=== PATIENT | female | born 1980 | race Caucasian/White ===

== ENCOUNTER 2019-05-21 15:53 | Inpatient (IN) | payer SELFPAY ==
[~2019-05-21] VITALS: Ht 65.7 cm; Wt 65.7 kg
[2019-05-21] MEDS ORDERED: KETOROLAC 30 MG/ML VIAL IVP ONE (16:15)
[2019-05-21] MEDS ORDERED: PIPERACILLIN SODIUM/TAZOBACTAM 4.5 GM in NS (IVPB) 100 ML IV ONE (16:15)
--- NOTE | 2019-05-21 16:18 | ED Upper Extremity ---
General Chief Complaint: Bite-Animal/Human/Insect Stated Complaint: CAT BITE INFECTION L HAND Nursing Triage Note: 2 WEEKS AGO PT WAS BIT BY A CAT ON HER LEFT HAND. WAS SENT FROM [facility] TO [place] WHERE SHE SPENT A WEEK ON IV ABX. SENT HOME ON CLINDA. PT STATES TODAY SHE STARTED RUNNING A LOW GRADE FEVER, INCREASED PAIN, AND MORE DRAINAGE FROM SITE. PT WENT TO CLINIC AND WAS TOLD TO COME TO THE ER FOR IV ABX. PT TOOK ALEVE AT 1400 Nursing Sepsis Screen: Possible Severe Sepsis Risk Source: patient Exam Limitations: no limitations History of Present Illness Date Seen by Provider: May 21, 2019 Time Seen by Provider: 16:14 Initial Comments To ER with reports mild to the left hand over the third MCP joint. This occurred about 2 weeks ago, she was sent from [facility] to [facility] in [place], received IV antibiotics, then discharged home on oral clindamycin which she is allegedly still taking. Comes in today with worsening redness and pain as well as discharge from the 2 puncture wounds to the dorsal aspect of the third MCP joint. Onset: other Severity: moderate Pain/Injury Location: left hand, left 3rd finger Method of Injury: other (cat bite) Modifying Factors: Worse With Movement Allergies and Home Medications Allergies Coded Allergies: No Known Drug Allergies (Unverified , 05/21/19) Patient Home Medication List Home Medication List Reviewed: Yes Review of Systems Constitutional: see HPI EENTM: see HPI Respiratory: no symptoms reported Cardiovascular: no symptoms reported Genitourinary: no symptoms reported Musculoskeletal: see HPI Skin: no symptoms reported Psychiatric/Neurological: No Symptoms Reported Past Vsfswkm-Yffulw-Yvcsla Hx Patient Social History Alcohol Use: Occasionally Uses 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 (PAST HISTORY OF METH) Smoking Status: Current Everyday Smoker Recent Foreign Travel: No Contact w/Someone Who Travel: No Recent Infectious Disease Expo: No Recent Hopitalizations: Yes Seasonal Allergies Seasonal Allergies: No Past Medical History Surgeries: Yes Appendectomy, Section, Hysterectomy, Orthopedic, Tonsillectomy Respiratory: No Cardiac: No Neurological: No Sexually Transmitted Disease: No Genitourinary: No Gastrointestinal: No Musculoskeletal: No Endocrine: No HEENT: No Cancer: No Psychosocial: No Integumentary: No Physical Exam Vital Signs Vital Signs - First Documented 05/21/19 15:55 Temp 36.6 Pulse 121 Resp 16 B/P (MAP) 121/81 (94) Pulse Ox 98 O2 Delivery Room Air Capillary Refill : Less Than 3 Seconds Height, Weight, BMI Height: '" Weight: lbs. oz. kg; 25.00 BMI Method: General Appearance: WD/WN, no apparent distress HEENT: PERRL/EOMI, normal ENT inspection Cardiovascular: tachycardia Respiratory: normal breath sounds, no respiratory distress, no accessory muscle use Shoulder: normal inspection, non-tender Elbow/Forearm: normal inspection, non-tender Wrist: Yes normal inspection Hand: Left, soft tissue tenderness (half-dollar sized area of erythema and swelling over the dorsal aspect third MCP joint, there are 2 puncture wounds both of which are draining a purulent material. Culture of this was collected and sent to lab.) Progress/Results/Core Measures Results/Orders Lab Results Laboratory Tests Test 05/21/19 16:30 05/21/19 16:57 Range/Units White Blood Count 13.4 H 4.3-11.0 10^3/uL Red Blood Count 4.60 4.35-5.85 10^6/uL Hemoglobin 14.0 11.5-16.0 G/DL Hematocrit 42 35-52 % Mean Corpuscular Volume 92 80-99 FL Mean Corpuscular Hemoglobin 30 25-34 PG Mean Corpuscular Hemoglobin Concent 33 32-36 G/DL Red Cell Distribution Width 13.5 10.0-14.5 % Platelet Count 506 H 130-400 10^3/uL Mean Platelet Volume 8.7 7.4-10.4 FL Neutrophils (%) (Auto) 65 42-75 % Lymphocytes (%) (Auto) 28 12-44 % Monocytes (%) (Auto) 6 0-12 % Eosinophils (%) (Auto) 1 0-10 % Basophils (%) (Auto) 1 0-10 % Neutrophils # (Auto) 8.6 H 1.8-7.8 X 10^3 Lymphocytes # (Auto) 3.8 1.0-4.0 X 10^3 Monocytes # (Auto) 0.8 0.0-1.0 X 10^3 Eosinophils # (Auto) 0.2 0.0-0.3 10^3/uL Basophils # (Auto) 0.1 0.0-0.1 10^3/uL Sodium Level 141 135-145 MMOL/L Potassium Level 4.0 3.6-5.0 MMOL/L Chloride Level 104 98-107 MMOL/L Carbon Dioxide Level 26 21-32 MMOL/L Anion Gap 11 5-14 MMOL/L Blood Urea Nitrogen 16 7-18 MG/DL Creatinine 0.78 0.60-1.30 MG/DL Estimat Glomerular Filtration Rate > 60 BUN/Creatinine Ratio 21 Glucose Level 91 70-105 MG/DL Lactic Acid Level 1.22 0.50-2.00 MMOL/L Calcium Level 9.3 8.5-10.1 MG/DL Corrected Calcium 9.4 8.5-10.1 MG/DL Total Bilirubin 0.1 0.1-1.0 MG/DL Aspartate Amino Transf (AST/SGOT) 24 5-34 U/L Alanine Aminotransferase (ALT/SGPT) 85 H 0-55 U/L Alkaline Phosphatase 197 H 40-136 U/L Total Protein 7.6 6.4-8.2 GM/DL Albumin 3.9 3.2-4.5 GM/DL Serum Test, Qualitative NEGATIVE NEGATIVE Urine Color YELLOW Urine Clarity TURBID Urine pH 8.5 5-9 Urine Specific [place] 1.015 L 1.016-1.022 Urine Protein NEGATIVE NEGATIVE Urine Glucose (UA) NEGATIVE NEGATIVE Urine Ketones NEGATIVE NEGATIVE Urine Nitrite NEGATIVE NEGATIVE Urine Bilirubin NEGATIVE NEGATIVE Urine Urobilinogen 0.2 < = 1.0 MG/DL Urine Leukocyte Esterase NEGATIVE NEGATIVE Urine RBC (Auto) NEGATIVE NEGATIVE Urine RBC NONE /HPF Urine WBC NONE /HPF Urine Squamous Epithelial Cells NONE /HPF Urine Crystals NONE /LPF Urine Amorphous Sediment LARGE ELY PHOSPHATE H /LPF Urine Bacteria NEGATIVE /HPF Urine Casts NONE /LPF Urine Mucus NEGATIVE /LPF Urine Culture Indicated NO Urine Opiates Screen NEGATIVE NEGATIVE Urine Oxycodone Screen NEGATIVE NEGATIVE Urine Methadone Screen NEGATIVE NEGATIVE Urine Propoxyphene Screen NEGATIVE NEGATIVE Urine Barbiturates Screen NEGATIVE NEGATIVE Ur Tricyclic Antidepressants Screen NEGATIVE NEGATIVE Urine Phencyclidine Screen NEGATIVE NEGATIVE Urine Amphetamines Screen NEGATIVE NEGATIVE Urine Methamphetamines Screen NEGATIVE NEGATIVE Urine Benzodiazepines Screen NEGATIVE NEGATIVE Urine Cocaine Screen NEGATIVE NEGATIVE Urine Cannabinoids Screen NEGATIVE NEGATIVE My Orders Orders - LILIA ADKINS DONOR SERVICES MANAGER Cbc With Automated Diff (05/21/19 16:07) Comprehensive Metabolic Panel (05/21/19 16:07) Ed Iv/Invasive Line Start (05/21/19 16:07) Blood Culture (05/21/19 16:07) Lactic Acid Analyzer (05/21/19 16:07) Ua Culture If Indicated (05/21/19 16:12) Drug Screen Stat (Urine) (05/21/19 16:12) Hcg,Qualitative Serum (05/21/19 16:12) Piperacillin Sodium/Tazobactam (Zosyn Vi (05/21/19 16:15) Ketorolac Injection (Toradol Injection) (05/21/19 16:15) Ns Iv 1000 Ml (Sodium Chloride 0.9%) (05/21/19 16:30) Wound Culture (05/21/19 16:18) Fentanyl Injection (Sublimaze Injection (05/21/19 17:30) Medications Given in ED Current Medications Medications Dose Ordered Sig/Vel Route Start Time Stop Time Status Last Admin Dose Admin Fentanyl Citrate 50 mcg ONCE ONCE IVP 05/21/19 17:30 05/21/19 17:31 DC 05/21/19 17:35 50 MCG Ketorolac Tromethamine 15 mg ONCE ONCE IVP 05/21/19 16:15 05/21/19 16:16 DC 05/21/19 16:39 15 MG Piperacillin Sod/ Tazobactam Sod 4.5 gm/Sodium Chloride 100 ml @ 200 mls/hr ONCE ONCE IV 05/21/19 16:15 05/21/19 16:44 DC 05/21/19 17:35 200 MLS/HR Vital Signs/I&O 05/21/19 15:55 Temp 36.6 Pulse 121 Resp 16 B/P (MAP) 121/81 (94) Pulse Ox 98 O2 Delivery Room Air Blood Pressure Mean: 94 Departure Communication (Admissions) Time/Spoke to Admitting Phy: 17:[address] Hughes and Dr. Albarado, we'll admit on Zosyn. Spoke with Dr. Roman, he would rather have general surgery evaluate the wound. Impression Primary Impression: Infected cat bite of hand Qualified Codes: S61.452A - Open bite of left hand, initial encounter; L08.9 - Local infection of the skin and subcutaneous tissue, unspecified; W55.01XA - Bitten by cat, initial encounter Disposition: ADMITTED INPATIENT Condition: Stable Admissions Decision to Admit Reason: Admit from ER (General) Decision to Admit/Date: May 21, 2019 Time/Decision to Admit Time: 17:52 Departure-Patient Inst. Referrals: [facility] (PCP/Family) Primary Care Physician Images Extremities-Upper 1 - LILIA ADKINS APRN May 21, 2019 16:17
[2019-05-21] MEDS ORDERED: NS IV 1000 ML 1,000 ML IV SCH (16:30)
[2019-05-21 16:48] LABS: BASOPHILS # (AUTO) 0.1 10^3/uL (0.0-0.1); BASOPHILS % (AUTO) 1 % (0-10); EOSINOPHILS # (AUTO) 0.2 10^3/uL (0.0-0.3); EOSINOPHILS % (AUTO) 1 % (0-10); HEMATOCRIT 42 % (35-52); LYMPHOCYTES # (AUTO) 3.8 X 10^3 (1.0-4.0); LYMPHOCYTES % (AUTO) 28 % (12-44); MEAN CORPUSCULAR HEMOGLOBIN 30 PG (25-34); MEAN CORPUSCULAR HGB CONC 33 G/DL (32-36); MEAN CORPUSCULAR VOLUME 92 FL (80-99); MEAN PLATELET VOLUME 8.7 FL (7.4-10.4); MONOCYTES # (AUTO) 0.8 X 10^3 (0.0-1.0); MONOCYTES % (AUTO) 6 % (0-12); NEUTROPHILS # (AUTO) 8.6 X 10^3 (1.8-7.8); NEUTROPHILS % (AUTO) 65 % (42-75); PLATELET COUNT 506 10^3/uL (130-400); RED CELL DISTRIBUTION WIDTH 13.5 % (10.0-14.5); WHITE BLOOD COUNT 13.4 10^3/uL (4.3-11.0)
[2019-05-21 17:02] LABS: ALANINE AMINOTRANSFERASE 85 U/L (0-55); ALBUMIN 3.9 GM/DL (3.2-4.5); ALKALINE PHOSPHATASE 197 U/L (40-136); BILIRUBIN,TOTAL 0.1 MG/DL (0.1-1.0); BUN/CREATININE RATIO 21; CALCIUM 9.3 MG/DL (8.5-10.1); CARBON DIOXIDE 26 MMOL/L (21-32); CHLORIDE 104 MMOL/L (98-107); CREATININE SERUM 0.78 MG/DL (0.60-1.30); GFR ESTIMATED > 60; GLUCOSE 91 MG/DL (70-105); SODIUM 141 MMOL/L (135-145); TOTAL PROTEIN 7.6 GM/DL (6.4-8.2)
[2019-05-21 17:06] LABS: BILIRUBIN,URINE NEGATIVE (NEGATIVE); CLARITY,URINE TURBID; COLOR,URINE YELLOW; GLUCOSE, URINE (UA) NEGATIVE (NEGATIVE); KETONES,URINE NEGATIVE (NEGATIVE); LEUKOCYTE ESTERASE ,URINE NEGATIVE (NEGATIVE); NITRITE,URINE NEGATIVE (NEGATIVE); PH,URINE 8.5 (5-9); PROTEIN,URINE NEGATIVE (NEGATIVE)
[2019-05-21 17:12] LABS: AMORPHOUS SEDIMENT,UR LARGE AMOR PHOSPHATE /LPF; BACTERIA,URINE NEGATIVE /HPF
[2019-05-21 17:18] LABS: AMPHETAMINE SCREEN, URINE NEGATIVE (NEGATIVE); BARBITURATE SCREEN URINE NEGATIVE (NEGATIVE); BENZODIAZEPINES SCREEN URINE NEGATIVE (NEGATIVE); CANNABINOID SCREEN, URINE NEGATIVE (NEGATIVE); COCAINE SCREEN URINE NEGATIVE (NEGATIVE); METHADONE STAT NEGATIVE (NEGATIVE); METHAMPHETAMINE SCREEN URINE S NEGATIVE (NEGATIVE); OPIATE SCREEN URINE NEGATIVE (NEGATIVE); OXYCODONE STAT NEGATIVE (NEGATIVE); PROPOXYPHENE STAT NEGATIVE (NEGATIVE); TRICYCLIC ANTIDEPRESSANTS SCRE NEGATIVE (NEGATIVE)
[2019-05-21] MEDS ORDERED: fentaNYL INJECTION 100 MCG/2 ML AMP IVP ONE ×2 (17:30→18:15)
[2019-05-21] MEDS ORDERED: CATHETER FLUSH 10 ML SYR IV PRN ×2 (18:15→19:00)
[2019-05-21] MEDS ORDERED: NS 100 ML (IVPB) BAG IV ONE (18:15)
[2019-05-21] MEDS ORDERED: IOHEXOL 350 MG/ML 100 ML (OMNIPAQUE 350) VIAL IV ONE (18:15)
[2019-05-21] MEDS ORDERED: HOLD METFORMIN - RECEIVED CONTRAST 20 ML VIAL IV SCH (18:15)
[2019-05-21 18:43] VITALS: BP 119/78
--- NOTE | 2019-05-21 18:59 | Diagnostic Imaging Report ---
PROCEDURE: CT right upper extremity with contrast. TECHNIQUE: Axial images were obtained through the right upper extremity after intravenous contrast and reformatted into coronal and sagittal oblique planes. Auto Exposure Controls were utilized during the CT exam to meet ALARA standards for radiation dose reduction. INDICATION: Cat bite with cellulitis. FINDINGS: There is some focal soft tissue swelling and induration circumferentially about the 3rd metacarpophalangeal joint. It is difficult to exclude a very tiny fluid collection. There is no fracture or dislocation. There are no lytic or sclerotic lesions within the hand. The contents of the carpal tunnels are grossly unremarkable. There are no other discrete fluid collections or masses. IMPRESSION: Circumferential soft tissue thickening and inflammatory induration about the 3rd metacarpophalangeal joint suspect for underlying cellulitis. Again difficult to exclude tiny abscess. No obvious bony abnormalities are appreciated. Findings remain most compatible with cellulitis. Recommend clinical correlation and if warranted this could likely be better characterized with gadolinium-enhanced MRI. Dictated by: Dictated on workstation # [id number]
[2019-05-21] MEDS ORDERED: VANCOMYCIN 1250 MG/NS 250 ML IVPB IV NR ×2 (19:00)
[2019-05-21] MEDS ORDERED: NICOTINE 21 MG (NICODERM) PATCH TD SCH (19:00)
--- NOTE | 2019-05-21 19:05 | NUR ---
CR 0.78; CR CL > 60; WT 65.7 KG; VANCO 1250 MG IV BOLUS THEN 1000 MG IV Q12H; TROUGH AFTER 3RD DOSE
--- NOTE | 2019-05-21 19:22 | History & Physical-Hospitalist ---
History of Present Illness HPI/Chief Complaint CC: Right hand cellulitis from cat bite recurrent type failed Cleocin PO HPI: This is a 38yoWF clinic patient of [facility] who had originally presented to [place], [place] ER last week and sent to [facility] for right hand infection from cat bite and spent 1 week inpatient for IV abx and then sent home on Cleocin who then worsened 2 days later and presented to [facility] clinic in [facility] and was told to go to [facility] ER so patient was assessed to be tachycardic but no fever but increased wbc without elevated lactic acid and what appears to be a recurrent cellulitis so CT scan was obtained revealing cellulitis and possibly a very small abscess so Dr Patterson was consulted and will be placed on Zosyn and Vanc along with pain meds and will monitor this issue closely. Source: patient, family Exam Limitations: no limitations Date Seen 05/21/19 Time Seen by a Provider: 17:50 Attending Physician Carol Hughes DO [facility] Referring Physician Date of Admission May 21, 2019 at 17:47 Home Medications & Allergies Home Medications Reviewed patient Home Medication Reconciliation performed by pharmacy medication reconciliations it service technician and/or nursing. Patients Allergies have been reviewed. Allergies Allergies Coded Allergies No Known Drug Allergies (Unverified05/21/19) Past Kkvntet-Utasou-Wucpbm Hx Past Med/Social Hx: Reviewed Nursing Past Med/Soc Hx, Reviewed and Corrections made Patient Social History Marrital Status: cohabiting Employed/Student: unemployed Alcohol Use: Occasionally Uses 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 (PAST HISTORY OF METH) Smoking Status: Current Everyday Smoker Recent Foreign Travel: No Contact w/other who traveled: No Recent Hopitalizations: Yes Recent Infectious Disease Expo: No Seasonal Allergies Seasonal Allergies: No Past Medical History Surgeries: Appendectomy, Section, Hysterectomy, Orthopedic, Tonsil lectomy Sexually Transmitted Disease: No Review of Systems Constitutional: see HPI, weakness Musculoskeletal: joint pain (right hand) Physical Exam Physical Exam Vital Signs Vital Signs - First Documented 05/21/19 15:55 Temp 36.6 Pulse 121 Resp 16 B/P (MAP) 121/81 (94) Pulse Ox 98 O2 Delivery Room Air Capillary Refill : Less Than 3 Seconds Height, Weight, BMI Height: '" Weight: lbs. oz. kg; 27.38 BMI Method: General Appearance: No Apparent Distress Eyes: Right Eye Normal Inspection, Right Eye PERRL HEENT: PERRL/EOMI, TMs Normal, Normal ENT Inspection, Pharynx Normal, Moist Mucous Membranes Neck: Full Range of Motion, Normal Inspection, Non Tender Respiratory: Chest Non Tender, Lungs Clear, Normal Breath Sounds, No Accessory Muscle Use, No Respiratory Distress Cardiovascular: Regular Rate, Rhythm, No Edema, No Gallop, No JVD, No Murmur, Normal Peripheral Pulses Gastrointestinal: Normal Bowel Sounds, No Organomegaly, No Pulsatile Mass, Non Tender, Soft Back: Normal Inspection, No CVA Tenderness, No Vertebral Tenderness Extremity: Normal Capillary Refill, Normal Inspection, Normal Range of Motion, Non Tender, No Calf Tenderness, No Pedal Edema, Swelling (right hand with pus drainage and edema of the middle finger and hand) Neurologic/Psychiatric: Alert, Oriented x3, No Motor/Sensory Deficits, Normal Mood/Affect, knitted cloth examiner II-XII Norm as Tested Skin: Normal Color, Warm/Dry Lymphatic: No Adenopathy Results Results/Procedures Labs Laboratory Tests 05/21/19 16:30 Patient resulted labs reviewed. Assessment/Plan Admission Diagnosis Assessment: Recurrent right hand infection failed PO abx after 1 week [facility] IV abx Smoker Tachycardia Dehydration Right hand pain Plan: IV abx broad spectrum IVF Pain meds Dr Franks consulted Admission Status: Inpatient Order (span 2 midnights) Reason for Inpatient Admission: Failed PO abx Diagnosis/Problems Diagnosis/Problems (1) Infected cat bite of hand Status: Acute Qualifiers: Encounter type: initial encounter Laterality: left Qualified Codes: S61.452A - Open bite of left hand, initial encounter; L08.9 - Local infection of the skin and subcutaneous tissue, unspecified; W55.01XA - Bitten by cat, initial encounter (2) SIRS (systemic inflammatory response syndrome) (3) Leukocytosis (4) Smoker CAROL HUGHES DO May 21, 2019 19:22
--- NOTE | 2019-05-21 19:55 | Consultation - Surgery ---
History of Present Illness History of Present Illness Patient Consulted On(t[place]on/time) 05/21/19 19:50 Time Seen by Provider: 15:22 History of Present Illness Surgery asked to consult regarding Left hand abscess. HPI per ED: 2 WEEKS AGO PT WAS BIT BY A CAT ON HER LEFT HAND. WAS SENT FROM [facility] TO [place] WHERE SHE SPENT A WEEK ON IV ABX. SENT HOME ON CLINDA. PT STATES TODAY SHE STARTED RUNNING A LOW GRADE FEVER, INCREASED PAIN, AND MORE DRAINAGE FROM SITE. PT WENT [facility] AND WAS TOLD TO COME TO THE ER FOR IV ABX. PT TOOK ALEVE AT 1400 To ER with reports mild to the left hand over the third MCP joint. This occurred about 2 weeks ago, she was sent from [facility] to [facility] in [place], received IV antibiotics, then discharged home on oral clindamycin which she is allegedly still taking. Comes in today with worsening redness and pain as well as discharge from the 2 puncture wounds to the dorsal aspect of the third MCP joint. Onset: other Severity: moderate Pain/Injury Location: left hand, left 3rd finger Method of Injury: other (cat bite) Modifying Factors: Worse With Movement When I saw pt pat she states the hand is just not getting netter and it is hard to bendl the fingers. She rates the pain as 4 out of 10, mostly dull pain. Pain shoots up arm and down into hand. Allergies and Home Medications Allergies Coded Allergies: No Known Drug Allergies (Unverified , 05/21/19) Patient Home Medication List Home Medication List Reviewed: Yes Past Bekyjkr-Phpjgt-Vxnlzm Hx Patient Social History Alcohol Use: Occasionally Uses 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 (PAST HISTORY OF METH) Smoking Status: Current Everyday Smoker Recent Foreign Travel: No Contact w/Someone Who Travel: No Recent Infectious Disease Expo: No Recent Hopitalizations: Yes Seasonal Allergies Seasonal Allergies: No Surgeries History of Surgeries: Yes Surgeries: Appendectomy, Section, Hysterectomy, Orthopedic, Tonsillectomy Respiratory History of Respiratory Disorde: No Cardiovascular History of Cardiac Disorders: No Neurological History of Neurological Disord: No Reproductive System Sexually Transmitted Disease: No Genitourinary History of Genitourinary Disor: No Gastrointestinal History of Gastrointestinal Di: No Musculoskeletal History of Musculoskeletal Dis: No Endocrine History of Endocrine Disorders: No HEENT History of HEENT Disorders: No Cancer History of Cancer: No Psychosocial History of Psychiatric Problem: No Integumentary History of Skin or Integumenta: No Family Medical History Significant Family History: Heart Disease (Father of [place]), Cancer (grandfather had bone CA), Hypertension (mother) Review of Systems-General Constitutional: No chills, No diaphoresis; fever, malaise EENTM: No blurred vision, No mouth pain, No mouth swelling, No epistaxis Respiratory: No cough, No dyspnea on exertion Cardiovascular: No chest pain, No palpitations Gastrointestinal: No abdominal pain, No heartburn, No nausea, No vomiting Genitourinary: No dysuria, No frequency, No hematuria Musculoskeletal: joint pain, joint swelling, muscle pain, muscle stiffness, muscle cramps Skin: No pruritus, No rash Psychiatric/Neurological: Denies Anxiety, Denies Depressed, Denies Seizure, Denies Tremors Other pt denies any hx of abnormal bleeding or bruising Physical Exam-General Problems Physical Exam Vital Signs Vital Signs - First Documented 05/21/19 15:55 Temp 36.6 Pulse 121 Resp 16 B/P (MAP) 121/81 (94) Pulse Ox 98 O2 Delivery Room Air Capillary Refill : Less Than 3 Seconds General Appearance: WD/WN, no apparent distress Eyes: Bilateral Eye PERRL HEENT: pharynx normal; No scleral icterus (R), No scleral icterus (L), No pale conjunctivae (R), No pale conjunctivae (L); other Neck: non-tender, full range of motion, supple Respiratory: chest non-tender, lungs clear, normal breath sounds, no respiratory distress, no accessory muscle use Cardiovascular: regular rate, rhythm, no edema; No no murmur Gastrointestinal: non tender, soft, no organomegaly, no pulsatile mass Back: no CVA tenderness, no vertebral tenderness Extremities: no pedal edema, no calf tenderness, normal capillary refill, other (left hand has area of erythema and swelling just behind middle finger, 2 puncture wounds are evident. There is erythema and some scant purulent drainage, but no streaking up the arm) Neurologic/Psychiatric: contact manager II-XII nml as tested, no motor/sensory deficits, alert, normal mood/affect, oriented x 3 Skin: normal color, warm/dry Lymphatic: no adenopathy (neck, axilla or groin) Data Review Labs Laboratory Tests 05/21/19 16:30: White Blood Count 13.4H, Red Blood Count 4.60, Hemoglobin 14.0, Hematocrit 42, Mean Corpuscular Volume 92, Mean Corpuscular Hemoglobin 30, Mean Corpuscular Hemoglobin Concent 33, Red Cell Distribution Width 13.5, Platelet Count 506H, Mean Platelet Volume 8.7, Neutrophils (%) (Auto) 65, Lymphocytes (%) (Auto) 28, Monocytes (%) (Auto) 6, Eosinophils (%) (Auto) 1, Basophils (%) (Auto) 1, Neutrophils # (Auto) 8.6H, Lymphocytes # (Auto) 3.8, Monocytes # (Auto) 0.8, Eosinophils # (Auto) 0.2, Basophils # (Auto) 0.1, Sodium Level 141, Potassium Level 4.0, Chloride Level 104, Carbon Dioxide Level 26, Anion Gap 11, Blood Urea Nitrogen 16, Creatinine 0.78, Estimat Glomerular Filtration Rate > 60, BUN/Creatinine Ratio 21, Glucose Level 91, Lactic Acid Level 1.22, Calcium Level 9.3, Corrected Calcium 9.4, Total Bilirubin 0.1, Aspartate Amino Transf (AST/SGOT) 24, Alanine Aminotransferase (ALT/SGPT) 85H, Alkaline Phosphatase 197H, Total Protein 7.6, Albumin 3.9, Serum Test, Qualitative NEGATIVE 05/21/19 16:57: Urine Color YELLOW, Urine Clarity TURBID, Urine pH 8.5, Urine Specific [place] 1.015L, Urine Protein NEGATIVE, Urine Glucose (UA) NEGATIVE, Urine Ketones NEGATIVE, Urine Nitrite NEGATIVE, Urine Bilirubin NEGATIVE, Urine Urobilinogen 0.2, Urine Leukocyte Esterase NEGATIVE, Urine RBC (Auto) NEGATIVE, Urine RBC NONE, Urine WBC NONE, Urine Squamous Epithelial Cells NONE, Urine Crystals NONE, Urine Amorphous Sediment LARGE ELY PHOSPHATEH, Urine Bacteria NEGATIVE, Urine Casts NONE, Urine Mucus NEGATIVE, Urine Culture Indicated NO, Urine Opiates Screen NEGATIVE, Urine Oxycodone Screen NEGATIVE, Urine Methadone Screen NEGATIVE, Urine Propoxyphene Screen NEGATIVE, Urine Barbiturates Screen NEGATIVE, Ur Tricyclic Antidepressants Screen NEGATIVE, Urine Phencyclidine Screen NEGATIVE, Urine Amphetamines Screen NEGATIVE, Urine Methamphetamines Screen NEGATIVE, Urine Benzodiazepines Screen NEGATIVE, Urine Cocaine Screen NEGATIVE, Urine Cannabinoids Screen NEGATIVE Radiology Draft CT EXTREMITY UPPER RIGHT W PROCEDURE: CT right upper extremity with contrast. TECHNIQUE: Axial images were obtained through the right upper extremity after intravenous contrast and reformatted into coronal and sagittal oblique planes. Auto Exposure Controls were utilized during the CT exam to meet ALARA standards for radiation dose reduction. INDICATION: Cat bite with cellulitis. FINDINGS: There is some focal soft tissue swelling and induration circumferentially about the 3rd metacarpophalangeal joint. It is difficult to exclude a very tiny fluid collection. There is no fracture or dislocation. There are no lytic or sclerotic lesions within the hand. The contents of the carpal tunnels are grossly unremarkable. There are no other discrete fluid collections or masses. IMPRESSION: Circumferential soft tissue thickening and inflammatory induration about the 3rd metacarpophalangeal joint suspect for underlying cellulitis. Again difficult to exclude tiny abscess. No obvious bony abnormalities are appreciated. Findings remain most compatible with cellulitis. Recommend clinical correlation and if warranted this could likely be better characterized with gadolinium-enhanced MRI. Dictated on workstation # [id number] Dict: 05/21/[id number] Trans: 05/21/19 [facility] [id number] Interpreted by: DARINEL EDGE MD Electronically signed by: Assessment/Plan Assessment/Plan Assessment/Plan Left Hand Abscess I reviewed the CT films and went over radiology reading. At this point I think the best course of action is to admit pt and start IV fluids, IV abx, pain meds as needed and use warm compresses 3-4 times daily and prn as needed. I dont she needs an incision and drainage; trying to avoid an invasive procedure at this point. Will monitor the hand and if erythema starts spreading or there is streaking up the arm, then may need surgical intervention. Hopefully wound cultures were obtained in ER, will wait to see what bacteria grows and what it is susceptible to. Thank you for this consult. CAROLANN PEREZ DO May 21, 2019 19:55
[2019-05-21 20:00] VITALS: BP 128/55
--- NOTE | 2019-05-21 20:00 | NUR ---
MEHRAN BOWLES admitted to room 420-1, with an admitting diagnosis of CAT BITE INFECTION, on 05/21/19 from ED via , accompanied by STAFF .MEHRAN BOWLES introduced to surroundings, call light, bed controls, phone, TV, temperature control, lights, meal times, smoking policy, visitor policy, side rail policy, bathrooms and showers. Patient Rights given to patient in the handbook. MEHRAN BOWLES verbalizes understanding that [facility] is not responsible for the loss or damage to any personal effects or valuables that are kept in the patients posession during their hospitalization.
[2019-05-21] MEDS: NS IV 1000 ML 1,000 ML IV SCH (20:03)
[2019-05-21] MEDS: ENOXAPARIN 40 MG/0.4 ML (LOVENOX) SYR SC SCH (20:04)
[2019-05-21 20:15] VITALS: BP 119/73
[2019-05-21] MEDS: DOCUSATE SODIUM 100 MG (COLACE) CAP PO SCH (21:19)
[2019-05-21] MEDS: HYDROcodone/APAP 5 MG/325 MG (LORTAB) TAB PO PRN (21:23)
--- NOTE | 2019-05-21 21:45 | NUR ---
PT WANTS HER IV DISCONNECTED FROM HER D/T FLUID MAKING HER HAVE TO USE BATHROOM MORE OFTEN THRU NIGHT. DR SIDHU NOTIFIED AND WAS OK WITH DISCONNECTING HER FROM IV. THIS RN LET HER KNOW THAT SHE WOULD HAVE ZOSYN RUNNING IV AT 0000 AND WOULD RUN FOR APPROX 4 HOURS.
[2019-05-21] MEDS: PIPERACILLIN/TAZO 4.5 GM/NS 100 ML IV SCH ×2 (23:36)
[2019-05-21] MEDS: morphine INJ 4 MG/ML 1 ML (VIAL/SYRINGE) IV PRN (23:36)
[2019-05-21] MEDS: ONDANSETRON 4 MG/2 ML (SDV) Z0FRAN IV PRN (23:40)
[2019-05-22] VITALS: BP 110/68
[2019-05-22] MEDS: morphine INJ 4 MG/ML 1 ML (VIAL/SYRINGE) IV PRN ×5 (03:38→23:33)
[2019-05-22] MEDS: NS IV 1000 ML 1,000 ML IV SCH (03:50)
[2019-05-22 04:00] VITALS: BP 111/74
[2019-05-22] MEDS: ONDANSETRON 4 MG/2 ML (SDV) Z0FRAN IV PRN (05:12)
[2019-05-22 05:26] LABS: BASOPHILS # (AUTO) 0.1 10^3/uL (0.0-0.1); BASOPHILS % (AUTO) 1 % (0-10); EOSINOPHILS # (AUTO) 0.2 10^3/uL (0.0-0.3); EOSINOPHILS % (AUTO) 2 % (0-10); HEMATOCRIT 37 % (35-52); HEMOGLOBIN 12.2 G/DL (11.5-16.0); LYMPHOCYTES % (AUTO) 42 % (12-44); MEAN CORPUSCULAR HEMOGLOBIN 31 PG (25-34); MEAN CORPUSCULAR HGB CONC 33 G/DL (32-36); MEAN CORPUSCULAR VOLUME 93 FL (80-99); MEAN PLATELET VOLUME 8.6 FL (7.4-10.4); MONOCYTES # (AUTO) 0.8 X 10^3 (0.0-1.0); MONOCYTES % (AUTO) 7 % (0-12); NEUTROPHILS # (AUTO) 5.7 X 10^3 (1.8-7.8); NEUTROPHILS % (AUTO) 49 % (42-75); PLATELET COUNT 439 10^3/uL (130-400); RED CELL DISTRIBUTION WIDTH 13.6 % (10.0-14.5); WHITE BLOOD COUNT 11.8 10^3/uL (4.3-11.0)
[2019-05-22 05:45] LABS: ALANINE AMINOTRANSFERASE 58 U/L (0-55); ALBUMIN 3.1 GM/DL (3.2-4.5); ALKALINE PHOSPHATASE 149 U/L (40-136); BILIRUBIN,TOTAL 0.2 MG/DL (0.1-1.0); BUN/CREATININE RATIO 21; CALCIUM 8.5 MG/DL (8.5-10.1); CARBON DIOXIDE 20 MMOL/L (21-32); CHLORIDE 108 MMOL/L (98-107); CREATININE SERUM 0.73 MG/DL (0.60-1.30); GFR ESTIMATED > 60; GLUCOSE 88 MG/DL (70-105); POTASSIUM 4.4 MMOL/L (3.6-5.0); SODIUM 138 MMOL/L (135-145); TOTAL PROTEIN 5.9 GM/DL (6.4-8.2)
[2019-05-22] MEDS: VANCOMYCIN 1 GM/NS 250 ML IVPB IV SCH ×4 (06:46→18:35)
[2019-05-22 08:00] VITALS: BP 112/64
[2019-05-22] MEDS: DOCUSATE SODIUM 100 MG (COLACE) CAP PO SCH ×2 (08:21→21:58)
[2019-05-22] MEDS: PIPERACILLIN/TAZO 4.5 GM/NS 100 ML IV SCH ×4 (08:21→16:11)
[2019-05-22] MEDS: NICOTINE PATCH REMOVAL TP SCH (08:21)
[2019-05-22] MEDS: NICOTINE 7 MG (NICODERM) PATCH TD SCH (08:45)
--- NOTE | 2019-05-22 08:58 | Progress Note - Surgery ---
TRE MORR[facility] 05/22/19 0858: Subjective Date Seen by a Provider: May 22, 2019 Time Seen by a Provider: 08:17 Subjective/Events-last exam Patient was examined. There are no changes to her cat bite injury on her L hand. Patient states its draining very little. She used warm compresses last night but stopped after she went to sleep. She is still experiencing pain, radiates to elbow, rated 3/10 today. Nursing changed her dressing with a warm compress. Does not appear to be spreading or worsening at this time. Movement makes it worse and keeping it still makes it better. Patient has new complaint of some abdominal pain, she reports she has been experiencing some constipation. Review of Systems General: No Chills, No Night Sweats HEENT: No Head Aches, No Visual Changes, No Eye Pain, No Ear Pain, No Dysphasia Pulmonary: Dyspnea (on exertion, started few days ago. ), Cough (started few days ago.) Cardiovascular: No: Chest Pain, Palpitations, Orthopnea Gastrointestinal: Nausea, Constipation; No: Vomiting, Abdominal Pain, Hematochezia Genitourinary: No Dysuria, No Hematuria Musculoskeletal: arm pain (L side ), hand pain (L hand at bite sight ); No: neck pain Neurological: No: Change in speech, Confusion, Seizures Focused Exam Lactate Level 05/21/19 16:30: Lactic Acid Level 1.22 Objective Exam Vital Signs Date Time Temp Pulse Resp B/P (MAP) Pulse Ox O2 Delivery O2 Flow Rate FiO2 05/22/19 04:00 36.8 84 18 111/74 (86) 96 Room Air 05/22/19 00:00 36.4 124 21 110/68 (82) 95 Room Air 05/21/19 20:15 37.4 89 20 119/73 (88) 96 Room Air 05/21/19 20:00 37.2 78 22 128/55 98 Room Air 05/21/19 20:00 Room Air 05/21/19 18:43 37.4 89 20 119/78 96 Room Air 05/21/19 18:37 92 20 126/90 99 Room Air 05/21/19 15:55 36.6 121 16 121/81 (94) 98 Room Air I & O 05/22/19 07:00 Intake Total 2162.5 ml Output Total 1 ml Balance 2161.5 ml Capillary Refill : Less Than 3 Seconds General Appearance: No Apparent Distress, WD/WN HEENT: PERRL/EOMI, Pharynx Normal Neck: Supple, Tender Lateral Respiratory: Chest Non Tender, Lungs Clear, Normal Breath Sounds, No Accessory Muscle Use, No Respiratory Distress Cardiovascular: Regular Rate, Rhythm, No Edema, No Murmur Peripheral Pulses: 2+ Radial Pulses (R), 2+ Radial Pulses (L) Gastrointestinal: normal bowel sounds, soft; No distended, No guarding (patient says very mild discomfort diffusely); tenderness Extremity: No Calf Tenderness, No Pedal Edema, Inflammation (L hand at bite site), Swelling (right hand with pus drainage and edema of the middle finger and hand) Neurologic/Psychiatric: Alert, Oriented x3, Normal Mood/Affect Skin: Normal Color, Warm/Dry, Erythema (L hand at bite site) Lymphatic: No Adenopathy (neck, auricular, supraclavicular, popliteal) Results Lab Laboratory Tests 05/21/19 16:30: White Blood Count 13.4H, Red Blood Count 4.60, Hemoglobin 14.0, Hematocrit 42, Mean Corpuscular Volume 92, Mean Corpuscular Hemoglobin 30, Mean Corpuscular Hemoglobin Concent 33, Red Cell Distribution Width 13.5, Platelet Count 506H, Mean Platelet Volume 8.7, Neutrophils (%) (Auto) 65, Lymphocytes (%) (Auto) 28, Monocytes (%) (Auto) 6, Eosinophils (%) (Auto) 1, Basophils (%) (Auto) 1, Neutrophils # (Auto) 8.6H, Lymphocytes # (Auto) 3.8, Monocytes # (Auto) 0.8, Eosinophils # (Auto) 0.2, Basophils # (Auto) 0.1, Sodium Level 141, Potassium Level 4.0, Chloride Level 104, Carbon Dioxide Level 26, Anion Gap 11, Blood Urea Nitrogen 16, Creatinine 0.78, Estimat Glomerular Filtration Rate > 60, BUN /Creatinine Ratio 21, Glucose Level 91, Lactic Acid Level 1.22, Calcium Level 9.3, Corrected Calcium 9.4, Total Bilirubin 0.1, Aspartate Amino Transf (AST/SGOT) 24, Alanine Aminotransferase (ALT/SGPT) 85H, Alkaline Phosphatase 197H, Total Protein 7.6, Albumin 3.9, Serum Test, Qualitative NEGATIVE 05/21/19 16:57: Urine Color YELLOW, Urine Clarity TURBID, Urine pH 8.5, Urine Specific [place] 1.015L, Urine Protein NEGATIVE, Urine Glucose (UA) NEGATIVE, Urine Ketones NEGATIVE, Urine Nitrite NEGATIVE, Urine Bilirubin NEGATIVE, Urine Urobilinogen 0.2, Urine Leukocyte Esterase NEGATIVE, Urine RBC (Auto) NEGATIVE, Urine RBC NONE, Urine WBC NONE, Urine Squamous Epithelial Cells NONE, Urine Crystals NONE, Urine Amorphous Sediment LARGE ELY PHOSPHATEH, Urine Bacteria NEGATIVE, Urine Casts NONE, Urine Mucus NEGATIVE, Urine Culture Indicated NO, Urine Opiates Screen NEGATIVE, Urine Oxycodone Screen NEGATIVE, Urine Methadone Screen NEGATIVE, Urine Propoxyphene Screen NEGATIVE, Urine Barbiturates Screen NEGATIVE, Ur Tricyclic Antidepressants Screen NEGATIVE, Urine Phencyclidine Screen NEGATIVE, Urine Amphetamines Screen NEGATIVE, Urine Methamphetamines Screen NEGATIVE, Urine Benzodiazepines Screen NEGATIVE, Urine Cocaine Screen NEGATIVE, Urine Cannabinoids Screen NEGATIVE 05/22/19 05:08: White Blood Count 11.8H, Red Blood Count 3.97L, Hemoglobin 12.2, Hematocrit 37, Mean Corpuscular Volume 93, Mean Corpuscular Hemoglobin 31, Mean Corpuscular Hemoglobin Concent 33, Red Cell Distribution Width 13.6, Platelet Count 439H, Mean Platelet Volume 8.6, Neutrophils (%) (Auto) 49, Lymphocytes (%) (Auto) 42, Monocytes (%) (Auto) 7, Eosinophils (%) (Auto) 2, Basophils (%) (Auto) 1, Neutrophils # (Auto) 5.7, Lymphocytes # (Auto) 5.0H, Monocytes # (Auto) 0.8, Eosinophils # (Auto) 0.2, Basophils # (Auto) 0.1, Sodium Level 138, Potassium Level 4.4, Chloride Level 108H, Carbon Dioxide Level 20L, Anion Gap 10, Blood Urea Nitrogen 15, Creatinine 0.73, Estimat Glomerular Filtration Rate > 60, BUN/Creatinine Ratio 21, Glucose Level 88, Calcium Level 8.5, Corrected Calcium 9.2, Total Bilirubin 0.2, Aspartate Amino Transf (AST/SGOT) 19, Alanine Aminotransferase (ALT/SGPT) 58H, Alkaline Phosphatase 149H, Total Protein 5.9L, Albumin 3.1L Assessment/Plan Assessment/Plan Assessment/Plan Left Hand Abscess Constipation - stool softeners on board Continue warm compresses 3-4 times daily. Cultures pending CT is negative for osteomyelitis, and shows slight fluid, no surgical intervention at this time. Will follow Elevate hand to facilitate drainage from the site Clinical Quality Measures DVT/VTE Risk/Contraindication: Risk Factor Score Per Nursin RFS Level Per Nursing on Admit: 2=Moderate DANGELO PATTERSON DO 05/22/19 0950: Subjective Time Seen by a Provider: 08:17 Subjective/Events-last exam Pt seen and examined, states she still has pain into 3rd finger and up into wrist. Review of Systems General: No Chills, No Night Sweats; Malaise Pulmonary: Dyspnea (on exertion, started few days ago. ), Cough (started few days ago.) Cardiovascular: No: Chest Pain, Palpitations Gastrointestinal: Nausea; No: Vomiting, Abdominal Pain Objective Exam General Appearance: No Apparent Distress, WD/WN HEENT: PERRL/EOMI, Pharynx Normal Respiratory: Lungs Clear, Normal Breath Sounds, No Accessory Muscle Use Gastrointestinal: normal bowel sounds, soft; No distended Extremity: Swelling (right hand with pus drainage and edema of the middle finger and hand, ?? better and definitely not worse than yesterday) Assessment/Plan Assessment/Plan Assessment/Plan Left Hand Abscess Increase frequency of warm compresses, continue IV ABX and elevate hand. Supervisory-Addendum Brief Verification & Attestation Participated in pt care: history, MDM, physical Personally performed: exam, history, MDM Care discussed with: Medical Student Procedures: n/a Verification and Attestation of Medical Student E/M Service A medical student performed and documented this service in my presence. I reviewed and verified all information documented by the medical student and made modifications to such information, when appropriate. I personally performed the physical exam and medical decision making. Dangelo Patterson, May 22, 2019,09:50 [facility]RE [facility] May 22, 2019 08:58 DANGELO PATTERSON DO May 22, 2019 09:50
[2019-05-22] MEDS: HYDROcodone/APAP 5 MG/325 MG (LORTAB) TAB PO PRN ×2 (10:26→21:58)
[2019-05-22] MEDS ORDERED: IBUP-2473 PO (11:08)
[2019-05-22] MEDS ORDERED: CLIN300C3 PO (11:08)
--- NOTE | 2019-05-22 11:09 | NUR ---
SPOKE WITH THE PT (SHE HAD MED BOTTLE WITH HER) TO COMPLETE THE MED REC 05-21-2019 CLINDAMYCIN 300MG #48/12DS (PT SAID SHE TOOK 2 DOSES YESTERDAY THE LAST ONE BEING IN THE AFTERNOON AND THEN WENT TO THE ED) OTC MEDS: IBUPROFEN PRN
--- NOTE | 2019-05-22 11:12 | Progress Note - Hospitalist ---
Subjective HPI/CC On Admission Date Seen by Provider: May 22, 2019 Time Seen by Provider: 10:00 CC: Right hand cellulitis from cat bite recurrent type failed Cleocin PO HPI: This is a 38yoWF clinic patient of [facility] who had originally presented to [place], [place] ER last week and sent to [facility] for right hand infection from cat bite and spent 1 week inpatient for IV abx and then sent home on Cleocin who then worsened 2 days later and presented to [facility] clinic in [facility] and was told to go to [facility] ER so patient was assessed to be tachycardic but no fever but increased wbc without elevated lactic acid and what appears to be a recurrent cellulitis so CT scan was obtained revealing cellulitis and possibly a very small abscess s o Dr Patterson was consulted and will be placed on Zosyn and Vanc along with pain meds and will monitor this issue closely. Subjective/Events-last exam Hand improved Warm wet compresses maintained Nicotine patch dose decreased to help avoid nausea Appreciate Dr Patterson Review of Systems Musculoskeletal: hand pain Focused Exam Lactate Level 05/21/19 16:30: Lactic Acid Level 1.22 Objective Exam Vital Signs Vital Signs Date Time Temp Pulse Resp B/P (MAP) Pulse Ox O2 Delivery O2 Flow Rate FiO2 05/22/19 12:05 37.3 81 20 105/72 (83) 98 Room Air Capillary Refill : Less Than 3 Seconds General Appearance: No Apparent Distress, WD/WN Respiratory: Lungs Clear Skin: Other (right hand with puncture wound and erythema improved but still edematous) Results/Procedures Lab Laboratory Tests 05/21/19 16:30 05/22/19 05:08 Patient resulted labs reviewed. Assessment/Plan Assessment and Plan Assess & Plan/Chief Complaint Assessment: Right hand cat bite s/p 1 week IV abx [facility] then failed outpatient PO Cleocin readmitted yesterday Smoker Plan: IV abx Compresses Diagnosis/Problems Diagnosis/Problems (1) Infected cat bite of hand Status: Acute Qualifiers: Encounter type: initial encounter Laterality: left Qualified Codes: S61.452A - Open bite of left hand, initial encounter; L08.9 - Local infection of the skin and subcutaneous tissue, unspecified; W55.01XA - Bitten by cat, initial encounter (2) SIRS (systemic inflammatory response syndrome) (3) Leukocytosis (4) Smoker Clinical Quality Measures DVT/VTE Risk/Contraindication: Risk Factor Score Per Nursin RFS Level Per Nursing on Admit: 2=Moderate JENNIFER SIDHU DO May 22, 2019 11:12
[2019-05-22 12:05] VITALS: BP 105/72
[2019-05-22 15:30] VITALS: BP 101/65
[2019-05-22] MEDS: ENOXAPARIN 40 MG/0.4 ML (LOVENOX) SYR SC SCH (18:34)
[2019-05-22 20:00] VITALS: BP 105/67
[2019-05-23 00:10] VITALS: BP 98/61
[2019-05-23] MEDS: PIPERACILLIN/TAZO 4.5 GM/NS 100 ML IV SCH ×4 (00:51→07:54)
[2019-05-23 04:10] VITALS: BP 107/75
[2019-05-23] MEDS: HYDROcodone/APAP 5 MG/325 MG (LORTAB) TAB PO PRN ×2 (04:50→11:53)
[2019-05-23] MEDS ORDERED: TROUGH ORDER-PHARMACY XX NR (06:00)
[2019-05-23] MEDS: morphine INJ 4 MG/ML 1 ML (VIAL/SYRINGE) IV PRN (06:17)
[2019-05-23 06:39] LABS: BASOPHILS # (AUTO) 0.1 10^3/uL (0.0-0.1); BASOPHILS % (AUTO) 1 % (0-10); EOSINOPHILS # (AUTO) 0.2 10^3/uL (0.0-0.3); EOSINOPHILS % (AUTO) 2 % (0-10); HEMATOCRIT 38 % (35-52); HEMOGLOBIN 12.5 G/DL (11.5-16.0); LYMPHOCYTES % (AUTO) 48 % (12-44); MEAN CORPUSCULAR HEMOGLOBIN 30 PG (25-34); MEAN CORPUSCULAR HGB CONC 33 G/DL (32-36); MEAN CORPUSCULAR VOLUME 93 FL (80-99); MEAN PLATELET VOLUME 8.9 FL (7.4-10.4); MONOCYTES # (AUTO) 0.5 X 10^3 (0.0-1.0); MONOCYTES % (AUTO) 6 % (0-12); NEUTROPHILS # (AUTO) 3.5 X 10^3 (1.8-7.8); NEUTROPHILS % (AUTO) 42 % (42-75); PLATELET COUNT 429 10^3/uL (130-400); RED CELL DISTRIBUTION WIDTH 13.3 % (10.0-14.5); WHITE BLOOD COUNT 8.4 10^3/uL (4.3-11.0)
[2019-05-23 07:04] LABS: ALANINE AMINOTRANSFERASE 46 U/L (0-55); ALBUMIN 3.3 GM/DL (3.2-4.5); ALKALINE PHOSPHATASE 150 U/L (40-136); BILIRUBIN,TOTAL 0.2 MG/DL (0.1-1.0); BUN/CREATININE RATIO 20; CALCIUM 8.7 MG/DL (8.5-10.1); CARBON DIOXIDE 25 MMOL/L (21-32); CHLORIDE 105 MMOL/L (98-107); CREATININE SERUM 0.82 MG/DL (0.60-1.30); GFR ESTIMATED > 60; GLUCOSE 78 MG/DL (70-105); POTASSIUM 4.3 MMOL/L (3.6-5.0); SODIUM 138 MMOL/L (135-145); TOTAL PROTEIN 6.2 GM/DL (6.4-8.2)
[2019-05-23 07:10] LABS: VANCOMYCIN,TROUGH 15.2 UG/ML (10.0-20.0)
[2019-05-23] MEDS: VANCOMYCIN 1 GM/NS 250 ML IVPB IV SCH ×2 (07:53)
[2019-05-23] MEDS: DOCUSATE SODIUM 100 MG (COLACE) CAP PO SCH (07:58)
[2019-05-23] MEDS: NICOTINE 7 MG (NICODERM) PATCH TD SCH (07:58)
[2019-05-23] MEDS: NICOTINE PATCH REMOVAL TP SCH (07:58)
[2019-05-23 08:07] VITALS: BP 107/67
--- NOTE | 2019-05-23 11:29 | Progress Note - Surgery ---
TRE M[facility] 05/23/19 1129: Subjective Date Seen by a Provider: May 23, 2019 Time Seen by a Provider: 11:04 Subjective/Events-last exam Patient was seen and examined. Hand is doing much better, there is no pus, drainage, or signs of spreading. Patient has continued doing warm compresses. She wants to go home and has no new complaints. Review of Systems General: No Chills, No Night Sweats HEENT: No Head Aches, No Visual Changes, No Eye Pain, No Ear Pain Pulmonary: No Dyspnea, No Cough Cardiovascular: No: Chest Pain, Palpitations Gastrointestinal: No: Nausea, Vomiting Genitourinary: No Dysuria, No Hematuria Musculoskeletal: arm pain (L ), hand pain (L ); No: neck pain, back pain Neurological: No: Weakness, Numbness, Change in speech, Confusion Focused Exam Lactate Level 05/21/19 16:30: Lactic Acid Level 1.22 Objective Exam Vital Signs Date Time Temp Pulse Resp B/P (MAP) Pulse Ox O2 Delivery O2 Flow Rate FiO2 05/23/19 08:07 36.8 90 18 107/67 (80) 96 Room Air 05/23/19 08:00 Room Air 05/23/19 04:10 36.8 80 18 107/75 (86) 97 Room Air 05/23/19 00:10 36.8 80 16 98/61 (73) 97 Room Air 05/22/19 21:30 Room Air 05/22/19 20:00 37.2 80 16 105/67 (80) 98 Room Air 05/22/19 15:30 37.3 75 16 101/65 (77) 98 Room Air 05/22/19 12:05 37.3 81 20 105/72 (83) 98 Room Air I & O 05/23/19 07:00 Intake Total 2080 ml Output Total 1 ml Balance 2079 ml Capillary Refill : Less Than 3 SecondsLess Than 3 Seconds General Appearance: No Apparent Distress, WD/WN HEENT: PERRL/EOMI, Pharynx Normal Neck: Supple, Tender Lateral Respiratory: Lungs Clear, Normal Breath Sounds, No Accessory Muscle Use, No Respiratory Distress Cardiovascular: Regular Rate, Rhythm, No Edema, No Murmur Peripheral Pulses: 2+ Radial Pulses (R), 2+ Radial Pulses (L) Gastrointestinal: normal bowel sounds, soft; No distended Extremity: No Calf Tenderness, No Pedal Edema, Swelling (right hand, edema of middle finger and hand. Improving, no more drainage. ) Neurologic/Psychiatric: Alert, Oriented x3, Normal Mood/Affect Skin: Other (right hand with puncture wound and erythema improved but still edematous, not draining) Lymphatic: No Adenopathy (neck, auricular, supraclavicular, popliteal) Results Lab Laboratory Tests 05/23/19 06:14: White Blood Count 8.4, Red Blood Count 4.12L, Hemoglobin 12.5, Hematocrit 38, Mean Corpuscular Volume 93, Mean Corpuscular Hemoglobin 30, Mean Corpuscular Hemoglobin Concent 33, Red Cell Distribution Width 13.3, Platelet Count 429H, Mean Platelet Volume 8.9, Neutrophils (%) (Auto) 42, Lymphocytes (%) (Auto) 48H, Monocytes (%) (Auto) 6, Eosinophils (%) (Auto) 2, Basophils (%) (Auto) 1, Neutrophils # (Auto) 3.5, Lymphocytes # (Auto) 4.0, Monocytes # (Auto) 0.5, Eosinophils # (Auto) 0.2, Basophils # (Auto) 0.1, Sodium Level 138, Potassium Level 4.3, Chloride Level 105, Carbon Dioxide Level 25, Anion Gap 8, Blood Urea Nitrogen 16, Creatinine 0.82, Estimat Glomerular Filtration Rate > 60, BUN/Creatinine Ratio 20, Glucose Level 78, Calcium Level 8.7, Corrected Calcium 9.3, Total Bilirubin 0.2, Aspartate Amino Transf (AST/SGOT) 21, Alanine Aminotransferase (ALT/SGPT) 46, Alkaline Phosphatase 150H, Total Protein 6.2L, Albumin 3.3, Vancomycin Level Trough 15.2 Microbiology 05/21/19 Blood Culture - Preliminary, Resulted No growth 05/21/19 Gram Stain, Resulted Pending 05/21/19 Wound Culture - Preliminary, Resulted Gram Negative [place] Assessment/Plan Assessment/Plan Assessment/Plan Left Hand Abscess Has improved. Has redness and swelling but no longer draining pus. Signing off, no surgical intervention at this time F/u with [facility] Clinical Quality Measures DVT/VTE Risk/Contraindication: Risk Factor Score Per Nursin RFS Level Per Nursing on Admit: 2=Moderate DANGELO PATTERSON DO 05/23/19 1140: Subjective Time Seen by a Provider: 11:04 Subjective/Events-last exam Pt seen and examined, states pain is better and would like to go home. Review of Systems General: No Chills, No Night Sweats Pulmonary: No Dyspnea, No Cough Cardiovascular: No: Chest Pain, Palpitations Objective Exam General Appearance: No Apparent Distress, WD/WN Respiratory: Lungs Clear, Normal Breath Sounds Cardiovascular: Regular Rate, Rhythm, No Murmur Extremity: Swelling (right hand, edema over metacarpal joint on middle finger much better with no more drainage. erythema is also less) Assessment/Plan Assessment/Plan Assessment/Plan Left Hand Abscess - would continue warm compresses today, oral ABX for 7 days and f/u with [facility], pt ok to go home today. Supervisory-Addendum Brief Verification & Attestation Participated in pt care: history, MDM, physical Personally performed: exam, history, MDM Care discussed with: Medical Student Procedures: n/a Verification and Attestation of Medical Student E/M Service A medical student performed and documented this service in my presence. I reviewed and verified all information documented by the medical student and made modifications to such information, when appropriate. I personally performed the physical exam and medical decision making. Dangelo Patterson, May 23, 2019,11:40 TRE [facility] May 23, 2019 11:29 DANGELO PATTERSON DO May 23, 2019 11:40
[2019-05-23 11:37] VITALS: BP 110/73
[2019-05-23] MEDS ORDERED: ACHD5005 PO (11:46)
[2019-05-23] MEDS ORDERED: AMOX-358 PO (11:46)
--- NOTE | 2019-05-23 11:46 | Discharge Summary ---
Discharge Summary Hospital Course Was the Problem List Reviewed?: Yes Problems/Dx: (1) Infected cat bite of hand Status: Acute Qualifiers: Qualified Codes: S61.452A - Open bite of left hand, initial encounter; L08.9 - Local infection of the skin and subcutaneous tissue, unspecified; W55.01XA - Bitten by cat, initial encounter (2) SIRS (systemic inflammatory response syndrome) (3) Leukocytosis (4) Smoker Hospital Course Date of Admission: May 21, 2019 at 17:47 Admission Diagnosis : Family Physician/Provider: Center/k,[facility] Date of Discharge: 05/23/19 Discharge Diagnosis: Recurrent infected cat bite of right hand, smoker Hospital Course: Patient had a brief course after admitted and placed on Vanc and Zosyn for recurrent infected cat bite right hand after DC from [facility] for 7 days and DC on Cleocin but readmitted here and placed on broad spectrum abx with general surgery consultation along with CT scan whcih revealed no specific abscess only cellulitis so she was placed on warm wet compresses through the weekend and was deemed improved and stable for DC on Augmentin for 7 more days. Labs and Pending Lab Test: Laboratory Tests 05/23/19 06:14: White Blood Count 8.4, Red Blood Count 4.12L, Hemoglobin 12.5, Hematocrit 38, Mean Corpuscular Volume 93, Mean Corpuscular Hemoglobin 30, Mean Corpuscular Hemoglobin Concent 33, Red Cell Distribution Width 13.3, Platelet Count 429H, Mean Platelet Volume 8.9, Neutrophils (%) (Auto) 42, Lymphocytes (%) (Auto) 48H, Monocytes (%) (Auto) 6, Eosinophils (%) (Auto) 2, Basophils (%) (Auto) 1, Neutrophils # (Auto) 3.5, Lymphocytes # (Auto) 4.0, Monocytes # (Auto) 0.5, Eosinophils # (Auto) 0.2, Basophils # (Auto) 0.1, Sodium Level 138, Potassium Level 4.3, Chloride Level 105, Carbon Dioxide Level 25, Anion Gap 8, Blood Urea Nitrogen 16, Creatinine 0.82, Estimat Glomerular Filtration Rate > 60, BUN/Creatinine Ratio 20, Glucose Level 78, Calcium Level 8.7, Corrected Calcium 9.3, Total Bilirubin 0.2, Aspartate Amino Transf (AST/SGOT) 21, Alanine Aminotransferase (ALT/SGPT) 46, Alkaline Phosphatase 150H, Total Protein 6.2L, Albumin 3.3, Vancomycin Level Trough 15.2 Microbiology 05/21/19 Blood Culture - Preliminary, Resulted Positive; See Report 05/21/19 Gram Stain - Final, Resulted 05/21/19 Wound Culture - Preliminary, Resulted Gram Negative [place] Home Meds Active Augmentin 875-125 Tablet (Amoxicillin/Potassium Clav) 1 Each Tablet 1 Each PO BID Hydrocodone/Acetaminophen 5/325mg Tablet (Acetaminophen/Hydrocodone Bitart) 1 Tab Tab 1 Tab PO Q4H PRN Reported Ibuprofen 200 Mg Tablet 1,000 Mg PO DAILY PRN Cleocin HCl (Clindamycin HCl) 300 Mg Capsule 300 Mg PO Q6H FILLED 05-21-2019 #48/ DAY SUPPLY Assessment/Pt Instructions [facility] Friday Discharge Planning: <30 minutes discharge planning Discharge Instructions Discharge Diet: No Restrictions Activity as Tolerated: Yes Discharge Physical Examination Vital Signs Vital Signs Date Time Temp Pulse Resp B/P (MAP) Pulse Ox O2 Delivery O2 Flow Rate FiO2 05/23/19 11:37 37.1 84 18 110/73 (85) 97 Room Air General Appearance: No Apparent Distress, WD/WN Skin: Other (right hand no erythema and only subtle edema right mid hand) Allergies: Coded Allergies: No Known Drug Allergies (Unverified , 05/21/19) Discharge Summary Date of Admission May 21, 2019 at 17:47 Date of Discharge Discharge Date: May 23, 2019 Admission Diagnosis Assessment: Recurrent right hand infection failed PO abx after 1 week [facility] IV abx Smoker Tachycardia Dehydration Right hand pain Plan: IV abx broad spectrum IVF Pain meds Dr Franks consulted Discharge Diagnosis Assessment: Right hand cat bite s/p 1 week IV abx [facility] then failed outpatient PO Cleocin readmitted yesterday Smoker Plan: IV abx Compresses (1) Infected cat bite of hand Status: Acute Qualifiers: Qualified Codes: S61.452A - Open bite of left hand, initial encounter; L08.9 - Local infection of the skin and subcutaneous tissue, unspecified; W55.01XA - Bitten by cat, initial encounter (2) SIRS (systemic inflammatory response syndrome) (3) Leukocytosis (4) Smoker Clinical Quality Measures DVT/VTE Risk/Contraindication: Risk Factor Score Per Nursin RFS Level Per Nursing on Admit: 2=Moderate SIDHU,JENNIFER DO May 23, 2019 11:46
--- NOTE | 2019-05-23 13:00 | NUR ---
RX AND INST AND VERBALIZED UNDERSTANDING. [facility] FRIDAY FIRST THING IN AM. DC'D PER WC WITH SO.
--- NOTE | 2019-05-26 07:50 | Physician Query Clarification ---
PQ-Intro New Diagnosis Admission/Discharge Admission Date: May 21, 2019 at 17:47 Discharge Date: May 23, 2019 at 13:00 The medical record reflects the following clinical scenario: History/Risk Factors: Infected open wound lt hand d/t cat bite, cellulitis lt. hand Clinical Findings: T 37.4, P 121, R 22, BP 128/55, Lactic acid 1.22, WBC 13,4, Blood culture Neisseria sicca Treatment: IV Piperacillin, IV Vancomycin Question: What condition best reflects the above clinical scenario? Please document a response in the Progress Noter or Discharge Summary. 1. Neisseria sicca sepsis 2. No sepsis 3. Other, with explanation of the clinical findings. 4. Clinically undetermined, no explanation for the clinical findings. PHYSICIAN RESPONSE What condition reflects above: 2 Please remember a lack of response to the above will prompt a phone page by CDI/Coding staff. In responding to this query, please exercise your independent professional judgment. The purpose of this communication is to more accurately reflect the complexity of your patients condition. The fact that a question is asked does not imply that any particular answer is desired or expected. Thank you for your timely response to this clarification. Requestors name: Jayden THIS PHYSICIAN QUERY FORM IS A PERMANENT PART OF THE MEDICAL RECORD JAYDEN PURVIS May 26, 2019 07:50 JENNIFER SIDHU DO May 26, 2019 09:04
== END 2019-05-23 13:00 | disposition home or self-care (01) | DRG 605 ==
LOC: ER 15:55 → 4TH 17:47
PROVIDERS: ADMIT Internal Medicine; ATTEND Internal Medicine
DX: S61.452A Open bite of left hand, initial encounter (principal); L03.114 Cellulitis of left upper limb; E86.0 Dehydration; F17.200 Nicotine dependence, unspecified, uncomplicated; R00.0 Tachycardia, unspecified; K59.00 Constipation, unspecified; W55.01XA Bitten by cat, initial encounter
CPT/HCPCS: 36415; 73201; 80053; 80202; 80306; 81000; 83605; 84703; 85025; 87040; 87070; 87077; 87184; 87185; 87205; 96361; 96365; 96375; 96376

== ENCOUNTER 2020-10-16 17:04 | Emergency (ER) | payer SELFPAY ==
[~2020-10-16] VITALS: Ht 154 cm; Wt 59.0 kg
[~2020-10-16 17:04] MED LIST: ACHD5005 PO; AMOX-358 PO; CLIN300C3 PO; IBUP-2473 PO
[2020-10-16 17:08] VITALS: BP 119/100
--- NOTE | 2020-10-16 17:14 | ED Upper Extremity ---
General Chief Complaint: Upper Extremity Stated Complaint: LEFT ARM INJ History of Present Illness Date Seen by Provider: Oct 16, 2020 Time Seen by Provider: 17:10 Initial Comments 40-year-old female presents with pain in her left forearm. Patient reports that little over a week ago she accidentally hit her left forearm with a hammer. She reports that the pain seems to be getting worse and that she has difficulty pushing off with that arm. Patient reports that she has been seen because she does not have insurance and does not like to come to the doctor. Patient has been using some Tylenol ibuprofen. She has some mild swelling. No decreased range of motion but does have some mild pain with different ranges of motion. She reports no other injury. Allergies and Home Medications Allergies Coded Allergies: No Known Drug Allergies (Unverified , 05/21/19) Home Medications Amoxicillin/Potassium Clav 1 Each Tablet, 1 EACH PO BID Prescribed by: JENNIFER SIDHU on 05/23/19 1146 Hydrocodone Bit/Acetaminophen 1 Tab Tab, 1 TAB PO Q4H PRN for PAIN-MODERATE (5- 7) Prescribed by: JENNIFER SIDHU on 05/23/19 1146 Ibuprofen 200 Mg Tablet, 1,000 MG PO DAILY PRN for PAIN-MILD (1-4), (Reported) Patient Home Medication List Home Medication List Reviewed: Yes Review of Systems Constitutional: no symptoms reported, chills EENTM: no symptoms reported Respiratory: no symptoms reported, cough Gastrointestinal: no symptoms reported Genitourinary: no symptoms reported Musculoskeletal: see HPI Skin: see HPI Psychiatric/Neurological: No Symptoms Reported Past Kdqjpeo-Rcpzmq-Ogpbbz Hx Seasonal Allergies Seasonal Allergies: No Past Medical History Surgeries: Yes Appendectomy, Section, Hysterectomy, Orthopedic, Tonsillectomy Respiratory: No Cardiac: No Neurological: No Sexually Transmitted Disease: No Genitourinary: No Gastrointestinal: No Musculoskeletal: No Endocrine: No HEENT: No Cancer: No Psychosocial: No Integumentary: No Family Medical History Heart Disease, Cancer, Hypertension Physical Exam Vital Signs Vital Signs - First Documented 10/16/20 17:08 Temp 36.3 Pulse 89 Resp 16 B/P (MAP) 119/100 (106) Pulse Ox 100 O2 Delivery Room Air Capillary Refill : Height, Weight, BMI Height: '" Weight: lbs. oz. kg; 63.47 BMI Method: General Appearance: no apparent distress Neck: full range of motion, supple Cardiovascular: normal peripheral pulses, regular rate, rhythm Respiratory: lungs clear, normal breath sounds Gastrointestinal: non tender, soft Shoulder: normal inspection Elbow/Forearm: normal ROM, Left, swelling (Mild left arm) Wrist: Yes swelling Hand: normal inspection Neurologic/Tendon: normal sensation, normal motor functions, normal tendon functions Neurologic/Psychiatric: alert, oriented x 3 Skin: normal color, warm/dry Progress/Results/Core Measures Results/Orders My Orders Orders - LEO GARAY DO Forearm 2 View Left (10/16/20 17:14) Vital Signs/I&O 10/16/20 17:08 Temp 36.3 Pulse 89 Resp 16 B/P (MAP) 119/100 (106) Pulse Ox 100 O2 Delivery Room Air Diagnostic Imaging Diagonstic Imaging: Xray Plain Films/CT/US/NM/MRI: forearm Comments FOREARM 2 VIEW LEFT INDICATION: Left forearm pain AP, and lateral views of the left forearm are obtained. No fracture or acute bony abnormality is seen. IMPRESSION: Negative left forearm. Reviewed: Reviewed by Me, Reviewed/Discussed Departure Impression Primary Impression: Contusion of forearm, left Qualified Codes: S50.12XA - Contusion of left forearm, initial encounter Disposition: 01 HOME, SELF-CARE Condition: Stable Departure-Patient Inst. Referrals: NO,LOCAL PHYSICIAN (PCP/Family) Primary Care Physician Patient Instructions: Contusion (DC) Add. Discharge Instructions: Warm moist heat to affected area 2-3 times daily 4% topical lidocaine with menthol to affected area as directed on package Tylenol or ibuprofen as needed for pain All discharge instructions reviewed with patient and/or family. Voiced understanding. LEO GARAY DO Oct 16, 2020 17:14
--- NOTE | 2020-10-16 17:31 | Diagnostic Imaging Report ---
INDICATION: Left forearm pain AP, and lateral views of the left forearm are obtained. No fracture or acute bony abnormality is seen. IMPRESSION: Negative left forearm. Dictated by: Dictated on workstation # [id number]
== END 2020-10-16 17:38 | disposition home or self-care (01) ==
LOC: EDUNIT# 17:04 → ER FS 17:06
DX: S50.12XA Contusion of left forearm, initial encounter (principal); W27.8XXA Contact with other nonpowered hand tool, initial encounter

== ENCOUNTER 2021-03-25 17:23 | Emergency (ER) | payer SELFPAY ==
[~2021-03-25] VITALS: Ht 154.9 cm; Wt 59.0 kg
[2021-03-25] MEDS ORDERED: morphine INJ 10 MG/ML 1ML (SYR OR VIAL) IVP STA (17:36)
[2021-03-25] MEDS ORDERED: morphine INJ 10 MG/ML 1ML (SYR OR VIAL) ONE (17:36)
[2021-03-25] MEDS ORDERED: LORazepam INJ 2 MG/ML (ATIVAN) VIAL IVP ONE (17:45)
[2021-03-25] MEDS ORDERED: ONDANSETRON 4 MG/2 ML (SDV) Z0FRAN IVP ONE (17:45)
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
[2021-03-25] MEDS ORDERED: LORA-405 SL (18:42)
[2021-03-25] MEDS ORDERED: OXYC1TAB12 PO (18:42)
[2021-03-25] MEDS ORDERED: RX-LORAZEPAM (ATIVAN) 0.5 MG TAB PPK#4 PO STA (19:42)
[2021-03-25] MEDS ORDERED: RX-OXYCODONE/APAP 5-325 MG #4 TAB PK PO PRN (19:45)
[2021-03-25] MEDS ORDERED: RX-LORAZEPAM (ATIVAN) 0.5 MG TAB PPK#4 PO ONE (19:58)
[2021-03-25 20:10] VITALS: BP 134/67
== END 2021-03-25 20:10 | disposition home or self-care (01) ==
LOC: EDUNIT# 17:23 → ER FS 17:25
DX: T23.342A Burn of third degree of multiple left fingers (nail), including thumb, initial encounter (principal); T31.0 Burns involving less than 10% of body surface; F17.210 Nicotine dependence, cigarettes, uncomplicated; X04.XXXA Exposure to ignition of highly flammable material, initial encounter

== ENCOUNTER 2022-08-21 20:12 | Emergency (ER) | payer SELFPAY ==
[~2022-08-21] VITALS: Ht 154 cm; Wt 59.4 kg
[~2022-08-21 20:12] MED LIST changes: +LORA-405 SL; +OXYC1TAB12 PO
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
[2022-08-21 20:22] VITALS: BP 120/77
--- NOTE | 2022-08-21 20:43 | Diagnostic Imaging Report ---
INDICATION: Pain. COMPARISON: None available. TECHNIQUE: Four radiographs of the chest and bilateral ribs dated August 21, 2022. FINDINGS: The cardiac silhouette is within normal limits in size. No significant pulmonary vascular congestion. The lungs are clear. Trace right pleural effusion. No significant left pleural effusion. No pneumothorax. No acute displaced or healing right-sided rib fracture. No suspicious radiopaque foreign body. IMPRESSION: Tiny right pleural effusion. No acute displaced or healing rib fracture. No pneumothorax. Dictated by: Dictated on workstation # [id number]
[2022-08-21] MEDS ORDERED: oxyCODONE/APAP 5/325MG (PERCOCET 5) TABLET PO ONE (21:00)
== END 2022-08-21 21:03 | disposition home or self-care (01) ==
LOC: EDUNIT# 20:12 → ER FS 20:13
DX: S20.211A Contusion of right front wall of thorax, initial encounter (principal); Z28.310 Unvaccinated for COVID-19; W20.8XXA Other cause of strike by thrown, projected or falling object, initial encounter
CPT/HCPCS: 71111